=== PATIENT | male | born 1950 | race Caucasian/White ===

== ENCOUNTER 2017-08-20 13:31 | Emergency (ER) | payer MEDICARE, OTHER ==
[~2017-08-20] VITALS: Ht 167.6 cm; Wt 83.8 kg
[~2017-08-20 13:31] MED LIST: ALPR-624 PO; AMLO2.5T PO; ASPI-1009 PO; ATOR20TA PO; COR3.125T PO; ERGO500014 PO; ISOS60TA PO; LAMO25TA62 PO; LOSA25TA96 PO; METF500T7 PO; NITR0.4T51 SL; OMEP-84 PO; ZOLP5TAB8 PO
[2017-08-20] MEDS ORDERED: aspirin 81mg tab.chew PO ONE (13:45)
[2017-08-20] MEDS ORDERED: adenosine 3mg/ml 2ml vial IV ONE (13:45)
[2017-08-20 13:56] LABS: BASOPHILS # (AUTO) 0.1 X10'3 (0-0.2); BASOPHILS % (AUTO) 0.7 % (0-1); EOSINOPHILS # (AUTO) 0.2 X10'3 (0-0.9); EOSINOPHILS % (AUTO) 2.1 % (0-6); HEMATOCRIT 43.7 % (42.0-52.0); HEMOGLOBIN 15.4 g/dl (14.0-17.9); LYMPHOCYTES # (AUTO) 2.5 X10'3 (1.1-4.8); LYMPHOCYTES % (AUTO) 21.5 % (21-51); MEAN CORPUSCULAR HEMOGLOBIN 37.4 PG (27.0-31.0); MEAN CORPUSCULAR HGB CONC 35.3 % (33.0-36.5); MEAN PLATELET VOLUME 7.1 FL (7.4-10.4); MONOCYTES % (AUTO) 17.1 % (2-12); NEUTROPHILS # (AUTO) 6.7 X10'3 (1.8-7.7); NEUTROPHILS % (AUTO) 58.6 % (42-75); PLATELET COUNT 426 X10'3 (140-440); RED BLOOD COUNT 4.12 X10'6 (4.70-6.10); RED CELL DISTRIBUTION WIDTH 13.9 % (11.5-14.5); WHITE BLOOD COUNT 11.5 X10'3 (4.5-11.0)
[2017-08-20 14:19] LABS: ALANINE AMINOTRANSFERASE 31 U/L (12-78); ALBUMIN/GLOBULIN RATIO 1.1 (1.1-1.5); ALKALINE PHOSPHATASE 86 IU/L (46-116); ANION GAP 6 (8-16); ASPARTATE AMINO TRANSFERASE 14 U/L (10-37); BLOOD UREA NITROGEN 16 MG/DL (7-18); CALCIUM 9.3 MG/DL (8.5-10.1); CHLORIDE 107 MMOL/L (99-107); GLUCOSE 162 MG/DL (70-104); MAGNESIUM 1.9 MG/DL (1.5-2.4); POTASSIUM 4.2 MMOL/L (3.5-5.1); SODIUM 142 MMOL/L (135-145); TOTAL CARBON DIOXIDE 28.9 MMOL/L (24-32); TOTAL PROTEIN 7.6 G/DL (6.4-8.2); eGFR 74 ML/MIN
[2017-08-20 14:45] VITALS: BP 123/75
== END 2017-08-20 14:45 | disposition home or self-care (01) ==
LOC: ER 13:31
DX: I47.1 Supraventricular tachycardia (principal); I25.10 Atherosclerotic heart disease of native coronary artery without angina pectoris; I10 Essential (primary) hypertension; Z79.82 Long term (current) use of aspirin; Z88.7 Allergy status to serum and vaccine
CPT/HCPCS: 36415; 71045; 80053; 83735; 83880; 85025; 93005; 96374; 99285; J0153; 84484

== ENCOUNTER 2018-07-16 23:16 | Inpatient (IN) | payer MEDICARE, OTHER ==
[~2018-07-16] VITALS: Ht 167.6 cm; Wt 80.0 kg
[~2018-07-16 23:16] MED LIST changes: -AMLO2.5T PO; +AMLO2.5T5 PO
[2018-07-16] MEDS ORDERED: ondansetron/PF 4mg/2ml inj IV ONE (23:25)
[2018-07-16] MEDS ORDERED: normal saline 1000ML IV soln IVB ONE (23:25)
[2018-07-17] MEDS: fentaNYL/PF 50MCG/1 ML 2ML syringe IV PRN ×2 (00:09→00:31)
[2018-07-17 00:20] LABS: BASOPHILS % (AUTO) 0.3 % (0-1); EOSINOPHILS # (AUTO) 0.3 X10'3 (0-0.9); EOSINOPHILS % (AUTO) 1.8 % (0-6); HEMATOCRIT 40.5 % (42.0-52.0); HEMOGLOBIN 13.7 g/dl (14.0-17.9); LYMPHOCYTES # (AUTO) 1.4 X10'3 (1.1-4.8); LYMPHOCYTES % (AUTO) 9.8 % (21-51); MEAN CORPUSCULAR HEMOGLOBIN 37.6 PG (27.0-31.0); MEAN CORPUSCULAR HGB CONC 33.9 % (33.0-36.5); MEAN CORPUSCULAR VOLUME 111.1 FL (78-98); MEAN PLATELET VOLUME 7.2 FL (7.4-10.4); MONOCYTES # (AUTO) 2.4 X10'3 (0-0.9); NEUTROPHILS % (AUTO) 71.1 % (42-75); PLATELET COUNT 374 X10'3 (140-440); RED BLOOD COUNT 3.65 X10'6 (4.70-6.10); RED CELL DISTRIBUTION WIDTH 13.5 % (11.5-14.5); WHITE BLOOD COUNT 14.1 X10'3 (4.5-11.0)
[2018-07-17] MEDS ORDERED: ondansetron/PF 4mg/2ml inj IV ONE (00:25)
[2018-07-17] MEDS ORDERED: fentaNYL/PF 50MCG/1 ML 2ML syringe IV ONE (00:25)
[2018-07-17 00:35] LABS: ALANINE AMINOTRANSFERASE 35 U/L (12-78); ALBUMIN 3.7 G/DL (3.4-5.0); ALBUMIN/GLOBULIN RATIO 1.1 (1.1-1.5); ALKALINE PHOSPHATASE 88 IU/L (46-116); ANION GAP 6 (8-16); ASPARTATE AMINO TRANSFERASE 14 U/L (10-37); BILIRUBIN,TOTAL 0.9 MG/DL (0.1-1.0); BLOOD UREA NITROGEN 19 MG/DL (7-18); BUN/CREATININE RATIO 17.9 (5.4-32.0); CALCIUM 9.1 MG/DL (8.5-10.1); CHLORIDE 105 MMOL/L (99-107); CREATININE 1.06 MG/DL (0.60-1.10); GLUCOSE 174 MG/DL (70-104); POTASSIUM 3.8 MMOL/L (3.5-5.1); SODIUM 141 MMOL/L (135-145); TOTAL PROTEIN 7.2 G/DL (6.4-8.2); eGFR 69 ML/MIN
[2018-07-17 00:41] LABS: MAGNESIUM 1.9 MG/DL (1.5-2.4)
[2018-07-17] MEDS ORDERED: etomidate 2mg/ml inj. IV ONE (00:50)
[2018-07-17 01:12] LABS: PLATELET ESTIMATE NORMAL; TOTAL CELLS COUNTED 100
[2018-07-17] MEDS ORDERED: bisacodyl 10mg suppository rectal RC PRN (02:00)
[2018-07-17] MEDS ORDERED: mag hydrox/Alum hydrox/simeth 30ml oral suspension PO PRN (02:00)
[2018-07-17] MEDS ORDERED: acetaminophen 650mg rectal suppository RC PRN (02:00)
[2018-07-17] MEDS ORDERED: magnesium hydroxide 30ml (MOM) UD suspension PO PRN (02:00)
[2018-07-17] MEDS ORDERED: MESSAGE TO PHARMACY PO ONE (02:00)
[2018-07-17] MEDS ORDERED: dextrose 50%-water 50ml dispensing syringe IV PRN ×2 (02:00)
[2018-07-17] MEDS ORDERED: glucagon, human recombinant 1mg kit SUBCUT PRN (02:00)
[2018-07-17] MEDS ORDERED: dextrose ORAL solution 15 GM/59 ML bottle PO PRN ×2 (02:00)
[2018-07-17] MEDS ORDERED: morphine 4 MG/ML inj SYRINge IV PRN (02:00)
[2018-07-17] MEDS ORDERED: diphenhydrAMINE 50 mg/ml inj IV PRN (02:00)
[2018-07-17] MEDS ORDERED: acetaminophen 325mg tablet PO PRN ×2 (02:00)
[2018-07-17] MEDS ORDERED: metoclopramide 5 mg/ml inj IV PRN (02:00)
[2018-07-17] MEDS ORDERED: ondansetron/PF 4mg/2ml inj IV PRN (02:00)
[2018-07-17] MEDS ORDERED: diphenhydrAMINE 25mg capsule PO PRN (02:00)
[2018-07-17] MEDS ORDERED: ISOS30TA6 PO (02:34)
[2018-07-17] MEDS ORDERED: CARV-50 PO (02:34)
[2018-07-17] MEDS ORDERED: LAMO200T31 PO (02:34)
[2018-07-17] MEDS ORDERED: SPIR25TA5 PO (02:34)
[2018-07-17 02:54] LABS: ETHANOL < 0.010 GM/DL (0.0-0.010); PHOSPHORUS 3.1 MG/DL (2.3-4.5)
[2018-07-17] MEDS: HYDROmorphone 1 mg/ml syringe IV PRN ×2 (03:00→21:21)
[2018-07-17 04:50] VITALS: BP 152/72
[2018-07-17] MEDS ORDERED: nitroGLYCERIN 0.4mg SUBLingual tab SL SCH (05:10)
[2018-07-17] MEDS: normal saline 1000ml 1,000 ML IV SCH ×2 (05:11→15:37)
--- NOTE | 2018-07-17 06:20 | NUR ---
Patient in room ORTHO 4024. I have received report from Fabiola Faust and had the opportunity to ask questions and assume patient care.
[2018-07-17] MEDS: HYDROcodone/acetaminophen 10/325mg tab PO PRN ×2 (07:20→11:11)
[2018-07-17] MEDS ORDERED: pneumococcal 23-VAL P-sac vacc 25 mcg/0.5ml vial IMVAC ONE (07:40)
[2018-07-17] MEDS: docusate sod 100mg capsule PO SCH ×2 (07:50→19:51)
[2018-07-17 07:51] VITALS: BP 136/61
[2018-07-17] MEDS: losartan 50mg tablet PO SCH (07:52)
[2018-07-17] MEDS: amLODIPine 2.5mg tablet PO SCH (07:52)
[2018-07-17] MEDS: pantoprazole 40mg Tablet.DR PO SCH (07:53)
[2018-07-17] MEDS: nicotine 21mg patch - 24 hr TD SCH (07:54)
[2018-07-17] MEDS: ALPRAZolam 0.5mg tablet PO SCH ×3 (07:55→21:00)
[2018-07-17] MEDS ORDERED: pantoprazole 40 MG vial IV SCH (08:00)
[2018-07-17 10:00] VITALS: BP 100/67
[2018-07-17 11:44] LABS: HEMOGLOBIN 12.6 g/dl (14.0-17.9); MEAN CORPUSCULAR HEMOGLOBIN 38.8 PG (27.0-31.0); MEAN CORPUSCULAR HGB CONC 35.1 % (33.0-36.5); MEAN CORPUSCULAR VOLUME 110.7 FL (78-98); MEAN PLATELET VOLUME 7.5 FL (7.4-10.4); PLATELET COUNT 336 X10'3 (140-440); RED BLOOD COUNT 3.26 X10'6 (4.70-6.10); RED CELL DISTRIBUTION WIDTH 13.1 % (11.5-14.5); WHITE BLOOD COUNT 12.4 X10'3 (4.5-11.0)
[2018-07-17 12:10] LABS: TOTAL CELLS COUNTED 100
[2018-07-17 12:11] LABS: PLATELET ESTIMATE NORMAL
[2018-07-17 12:56] LABS: ALANINE AMINOTRANSFERASE 31 U/L (12-78); ALBUMIN 3.2 G/DL (3.4-5.0); ALBUMIN/GLOBULIN RATIO 1.1 (1.1-1.5); ALKALINE PHOSPHATASE 82 IU/L (46-116); ANION GAP 9 (8-16); ASPARTATE AMINO TRANSFERASE 16 U/L (10-37); BILIRUBIN,TOTAL 1.1 MG/DL (0.1-1.0); BLOOD UREA NITROGEN 14 MG/DL (7-18); BUN/CREATININE RATIO 13.5 (5.4-32.0); CALCIUM 8.1 MG/DL (8.5-10.1); CHLORIDE 106 MMOL/L (99-107); CREATININE 1.04 MG/DL (0.60-1.10); GLUCOSE 150 MG/DL (70-104); POTASSIUM 3.5 MMOL/L (3.5-5.1); SODIUM 141 MMOL/L (135-145); TOTAL CARBON DIOXIDE 26.5 MMOL/L (24-32); TOTAL PROTEIN 6.2 G/DL (6.4-8.2); eGFR 71 ML/MIN
[2018-07-17] MEDS: oxyCODONE/APAP 10/325mg tablet PO PRN ×2 (15:37→19:52)
--- NOTE | 2018-07-17 16:57 | NUR ---
DM consult: A1C 7.0.Pt seen by KASHIF for written/verbal DM/high protein eds. RD reviewed high protein needs for wound healing, immune strength, high protein foods, and protein supplementation options. RD contact information provided in case of further questions. Pt agrees to attend CDE course; declines additional proteins at this time. RD encouraged protein needs for wound healing given tibial fx w/ future OR next week per MD note. Addendum: 07/17/18 at [address] Amended: Links added.
[2018-07-17 18:00] VITALS: BP 94/61
--- NOTE | 2018-07-17 18:26 | NUR ---
Problems reprioritized. Patient report given, questions answered & plan of care reviewed with Peggy Hernandez RN.
--- NOTE | 2018-07-17 18:30 | NUR ---
Patient in room ORTHO 4024. I have received report from AAN CRISTINA NAVA and had the opportunity to ask questions and assume patient care.
[2018-07-17] MEDS ORDERED: temazepam 15mg capsule PO PRN (21:00)
[2018-07-17] MEDS: atorvastatin 20mg tablet PO SCH (21:14)
[2018-07-17] MEDS: zolpidem 5mg tablet PO SCH (21:15)
[2018-07-17 22:00] VITALS: BP 138/74
[2018-07-18] VITALS (13 sets, daily range): BP systolic 115–153; BP diastolic 52–81
[2018-07-18] MEDS: normal saline 1000ml 1,000 ML IV SCH ×3 (00:25→17:57)
[2018-07-18] MEDS: oxyCODONE/APAP 10/325mg tablet PO PRN ×6 (00:26→23:57)
[2018-07-18] MEDS: HYDROmorphone 1 mg/ml syringe IV PRN ×3 (05:13→21:01)
[2018-07-18] MEDS ORDERED: HYDROmorphone 1 mg/ml syringe IV ONE (06:15)
--- NOTE | 2018-07-18 06:24 | NUR ---
Problems reprioritized. Patient report given, questions answered & plan of care reviewed with ANA CRISTINA PORTILLO.
[2018-07-18 07:11] LABS: HEMATOCRIT 35.7 % (42.0-52.0); HEMOGLOBIN 12.4 g/dl (14.0-17.9); MEAN CORPUSCULAR HEMOGLOBIN 38.9 PG (27.0-31.0); MEAN CORPUSCULAR HGB CONC 34.7 % (33.0-36.5); MEAN PLATELET VOLUME 7.8 FL (7.4-10.4); PLATELET COUNT 311 X10'3 (140-440); RED BLOOD COUNT 3.18 X10'6 (4.70-6.10); RED CELL DISTRIBUTION WIDTH 13.2 % (11.5-14.5); WHITE BLOOD COUNT 11.7 X10'3 (4.5-11.0)
[2018-07-18 07:13] LABS: ALANINE AMINOTRANSFERASE 26 U/L (12-78); ALBUMIN/GLOBULIN RATIO 0.9 (1.1-1.5); ALKALINE PHOSPHATASE 77 IU/L (46-116); ANION GAP 9 (8-16); ASPARTATE AMINO TRANSFERASE 14 U/L (10-37); BLOOD UREA NITROGEN 14 MG/DL (7-18); BUN/CREATININE RATIO 15.4 (5.4-32.0); CALCIUM 8.1 MG/DL (8.5-10.1); CHLORIDE 107 MMOL/L (99-107); CHOL/HDL RATIO 2.9 (0.00-4.99); CHOLESTEROL 93 MG/DL (0-200); CREATININE 0.91 MG/DL (0.60-1.10); GLUCOSE 174 MG/DL (70-104); HDL CHOLESTEROL 32 MG/DL (35-60); LDL CHOLESTEROL 49 MG/DL (50-100); POTASSIUM 3.4 MMOL/L (3.5-5.1); SODIUM 141 MMOL/L (135-145); TOTAL CARBON DIOXIDE 25.1 MMOL/L (24-32); TOTAL PROTEIN 6.2 G/DL (6.4-8.2); TRIGLYCERIDES 85 MG/DL (20-135); eGFR 83 ML/MIN
[2018-07-18] MEDS ORDERED: ringers solution, lacted 1,000 ML IV SCH (07:41)
[2018-07-18] MEDS ORDERED: morphine 4 MG/ML inj SYRINge IV PRN ×2 (07:45)
[2018-07-18] MEDS ORDERED: proCHLORperazine 10 MG/2 ml inj IV PRN (07:45)
[2018-07-18] MEDS ORDERED: meperidine/PF 25mg/ml syringe IV PRN ×3 (07:45)
[2018-07-18] MEDS ORDERED: ondansetron/PF 4mg/2ml inj IV PRN (07:45)
[2018-07-18] MEDS: nicotine 21mg patch - 24 hr TD SCH (08:00)
[2018-07-18] MEDS: ALPRAZolam 0.5mg tablet PO SCH ×3 (08:00→21:00)
[2018-07-18 08:05] LABS: ANISOCYTOSIS 1+; LARGE PLATELETS FEW; PLATELET ESTIMATE NORMAL; TOTAL CELLS COUNTED 100
[2018-07-18] MEDS: docusate sod 100mg capsule PO SCH ×2 (09:05→19:33)
[2018-07-18] MEDS: amLODIPine 2.5mg tablet PO SCH (09:06)
[2018-07-18] MEDS: losartan 50mg tablet PO SCH (09:06)
[2018-07-18] MEDS: pantoprazole 40mg Tablet.DR PO SCH (09:09)
--- NOTE | 2018-07-18 11:45 | NUR ---
Pt transferred to OR via bed.
[2018-07-18] MEDS ORDERED: MIDAZolam 5mg/5ml vial ONE (12:09)
[2018-07-18] MEDS ORDERED: fentaNYL/PF 50MCG/1 ML 2ML syringe ONE (12:09)
[2018-07-18] MEDS ORDERED: BUPIVAcaine/dex-water/PF 7.5 mg/ml 2ml ampul ONE (12:11)
[2018-07-18] MEDS ORDERED: ceFAZolin 1000mg inj ONE (12:31)
[2018-07-18] MEDS ORDERED: ROPIVAcaine 0.5% (5mg/ml) 30ml vial ONE (13:29)
--- NOTE | 2018-07-18 13:55 | NUR ---
Received from OR via BED , accompanied by Anesthesiologist DR TERAN and report given by Anesthesiolgist. PATIENT A&OX4, DENIES PAIN, V/S WNL, NEUROVASCULAR CHECKS INTACT, SCD ON LLE, 18G PIV RUE, F/C DRAINIANG CLEAR YELLOW URINE, SPLINT CAST DRESSING TO RLE CDI.
--- NOTE | 2018-07-18 14:45 | NUR ---
Pt transferred from Recovery Room to 4024a via bed. Pt drowsy but easily aroused. Pt denied any pain at this time. R leg cast/spilnt CDI and up on pillow. VSS.
--- NOTE | 2018-07-18 14:45 | NUR ---
PATIENT A&OX4, DENIES PAIN, V/S WNL, NEUROVASCULAR CHECKS INTACT, SCD ON LLE, 18G PIV RUE, F/C DRAINIANG CLEAR YELLOW URINE, SPLINT CAST DRESSING TO RLE CDI. PATIENT TAKEN TO 4024A PLACED ON TELE AND HOOKED UP TO MONITORS IN [place]OMA ND REPORT GIVEN TO LINDSEY DE LA PAZ WHO HAS TAKEN OVER PATIENT CARE.
--- NOTE | 2018-07-18 15:10 | NUR ---
Patient in room ORTHO 4024. I have received report from kris Johns RN and had the opportunity to ask questions and assume patient care.
--- NOTE | 2018-07-18 15:10 | NUR ---
Report given to Alysia Jackson RN.
[2018-07-18] MEDS: cefazolin/dext.iso 2gm/50ml 50 ML IV SCH ×2 (16:18→23:56)
--- NOTE | 2018-07-18 18:10 | NUR ---
Received report from ANA CRISTINA Hatfield.
--- NOTE | 2018-07-18 18:23 | NUR ---
Problems reprioritized. Patient report given, questions answered & plan of care reviewed with Peggy Waite
--- NOTE | 2018-07-18 18:54 | NUR ---
PAGER ID: [phone] MESSAGE: [id number] Codey Stewart potassium was 3.4 can I get the K+ protocol please? Call Peggy [phone]
--- NOTE | 2018-07-18 19:06 | NUR ---
PAGER ID: [phone] MESSAGE: [id number] Codey Stewart. K was 3.4 I just need a replacement order. Call Peggy at [phone]
[2018-07-18] MEDS ORDERED: magnesium 4gm in 100ml NS 100 ML IV PRN (19:10)
[2018-07-18] MEDS ORDERED: potassium Cl 40MEQ/NS 500ml 500 ML IV PRN ×2 (19:10)
[2018-07-18] MEDS ORDERED: MESSAGE TO PHARMACY PO ONE (19:10)
[2018-07-18] MEDS ORDERED: magnesium Cl slow-release 64mg tablet PO PRN (19:10)
[2018-07-18] MEDS ORDERED: magnesium 2GM in 50ml NS 50 ML IV PRN (19:10)
[2018-07-18] MEDS ORDERED: glucagon, human recombinant 1mg kit SUBCUT PRN (19:10)
[2018-07-18] MEDS ORDERED: potassium Cl 20 mEq SR tablet PO PRN (19:10)
[2018-07-18] MEDS ORDERED: dextrose 50%-water 50ml dispensing syringe IV PRN ×2 (19:10)
[2018-07-18] MEDS ORDERED: dextrose ORAL solution 15 GM/59 ML bottle PO PRN ×2 (19:10)
[2018-07-18] MEDS ORDERED: insulin Lispro (HumaLOG) vial - multi-dose SQ SCH (19:10)
[2018-07-18] MEDS: potassium Cl 20 mEq SR tablet PO PRN ×2 (19:33→23:56)
[2018-07-18] MEDS: atorvastatin 20mg tablet PO SCH (21:01)
[2018-07-18] MEDS: zolpidem 5mg tablet PO SCH (21:01)
[2018-07-18] MEDS: insulin Lispro (HumaLOG) vial - multi-dose SQ SCH (21:11)
--- NOTE | 2018-07-18 21:11 | NUR ---
HS blood sugar was 247 not 274 but patient insulin is the same dose.
[2018-07-18] MEDS: insulin glargine (Lantus) pen - multi-dose SQ SCH (21:12)
[2018-07-19] MEDS: normal saline 1000ml 1,000 ML IV SCH ×2 (03:09→16:11)
[2018-07-19] MEDS: potassium Cl 20 mEq SR tablet PO PRN (03:49)
[2018-07-19] MEDS: oxyCODONE/APAP 10/325mg tablet PO PRN ×5 (03:50→21:31)
--- NOTE | 2018-07-19 05:28 | NUR ---
Bernal catheter removed. Patient tolerated well. Brook care provided. Will continue to monitor.
[2018-07-19 06:00] VITALS: BP 143/77
--- NOTE | 2018-07-19 06:36 | NUR ---
Problems reprioritized. Patient report given, questions answered & plan of care reviewed with ANA CRISTINA Hernandez.
[2018-07-19] MEDS: HYDROmorphone 1 mg/ml syringe IV PRN ×4 (06:46→19:47)
[2018-07-19] MEDS: nicotine 21mg patch - 24 hr TD SCH (08:00)
[2018-07-19] MEDS: amLODIPine 2.5mg tablet PO SCH (08:05)
[2018-07-19] MEDS: cefazolin/dext.iso 2gm/50ml 50 ML IV SCH ×2 (08:05→15:18)
[2018-07-19] MEDS: losartan 50mg tablet PO SCH (08:05)
[2018-07-19] MEDS: docusate sod 100mg capsule PO SCH ×2 (08:05→19:47)
[2018-07-19] MEDS: pantoprazole 40mg Tablet.DR PO SCH (08:06)
[2018-07-19] MEDS: aspirin 325mg tablet, delayed-release (Ecotrin) PO SCH (08:06)
[2018-07-19] MEDS: ALPRAZolam 0.5mg tablet PO SCH ×3 (08:06→21:00)
[2018-07-19 08:37] LABS: HEMATOCRIT 34.5 % (42.0-52.0); HEMOGLOBIN 12.1 g/dl (14.0-17.9); MEAN CORPUSCULAR HEMOGLOBIN 39.4 PG (27.0-31.0); MEAN CORPUSCULAR HGB CONC 35.2 % (33.0-36.5); MEAN CORPUSCULAR VOLUME 111.9 FL (78-98); MEAN PLATELET VOLUME 8.2 FL (7.4-10.4); PLATELET COUNT 299 X10'3 (140-440); RED BLOOD COUNT 3.08 X10'6 (4.70-6.10); WHITE BLOOD COUNT 15.7 X10'3 (4.5-11.0)
[2018-07-19 08:48] LABS: ALANINE AMINOTRANSFERASE 20 U/L (12-78); ALBUMIN 2.9 G/DL (3.4-5.0); ALBUMIN/GLOBULIN RATIO 0.8 (1.1-1.5); ALKALINE PHOSPHATASE 69 IU/L (46-116); ANION GAP 9 (8-16); ASPARTATE AMINO TRANSFERASE 13 U/L (10-37); BILIRUBIN,TOTAL 1.1 MG/DL (0.1-1.0); BLOOD UREA NITROGEN 11 MG/DL (7-18); BUN/CREATININE RATIO 12.8 (5.4-32.0); CALCIUM 8.3 MG/DL (8.5-10.1); CHLORIDE 106 MMOL/L (99-107); CREATININE 0.86 MG/DL (0.60-1.10); GLUCOSE 153 MG/DL (70-104); MAGNESIUM 1.8 MG/DL (1.5-2.4); POTASSIUM 3.9 MMOL/L (3.5-5.1); SODIUM 140 MMOL/L (135-145); TOTAL CARBON DIOXIDE 25.3 MMOL/L (24-32); TOTAL PROTEIN 6.6 G/DL (6.4-8.2); eGFR 88 ML/MIN
[2018-07-19] MEDS: insulin Lispro (HumaLOG) vial - multi-dose SQ SCH ×3 (08:59→18:44)
[2018-07-19 09:28] LABS: ANISOCYTOSIS 1+; LARGE PLATELETS FEW; PLATELET ESTIMATE NORMAL; TOTAL CELLS COUNTED 100
[2018-07-19 10:00] VITALS: BP 144/55
--- NOTE | 2018-07-19 12:36 | NUR ---
Nutrition Consult: Pt/SO seen by KASHIF for questions regarding snacks and curbing sweet cravings. RD reviewed healthy snack options and lower CHO/sugar free alternatives; reinforced attending CDE course. All pt/SO questions answered w/ no further concerns at this time; RD encouraged to call if further questions. Addendum: 07/19/18 at [address] Amended: Links added.
[2018-07-19 18:00] VITALS: BP 162/66
--- NOTE | 2018-07-19 18:14 | NUR ---
Problems reprioritized. Patient report given, questions answered & plan of care reviewed with Fabiola DE LA PAZ.
[2018-07-19] MEDS: atorvastatin 20mg tablet PO SCH (19:47)
[2018-07-19] MEDS: zolpidem 5mg tablet PO SCH (19:47)
[2018-07-19] MEDS: lactobacillus rhamnosus 10,000 MMU CELLS/CAPSULE PO SCH (19:47)
--- NOTE | 2018-07-19 20:13 | NUR ---
RECEIVED REPORT FROM ARELI DE LA PAZ AND ASSUMED PATIENT CARE Addendum: 07/19/18 at 2014 by Fabiola Garcia RN RECEIVED REPORT AT 1800
[2018-07-19] MEDS: insulin glargine (Lantus) pen - multi-dose SQ SCH (21:31)
[2018-07-19 22:00] VITALS: BP 105/72
[2018-07-20] MEDS: cefazolin/dext.iso 2gm/50ml 50 ML IV SCH ×4 (00:46→23:38)
[2018-07-20] MEDS: normal saline 1000ml 1,000 ML IV SCH ×3 (00:48→21:23)
[2018-07-20] MEDS: oxyCODONE/APAP 10/325mg tablet PO PRN ×4 (01:27→19:11)
[2018-07-20 06:00] VITALS: BP 114/78
--- NOTE | 2018-07-20 06:23 | NUR ---
REPORT GIVEN TO MANISHA DE LA PAZ
[2018-07-20 07:10] LABS: HEMATOCRIT 33.1 % (42.0-52.0); HEMOGLOBIN 11.4 g/dl (14.0-17.9); MEAN CORPUSCULAR HGB CONC 34.5 % (33.0-36.5); MEAN CORPUSCULAR VOLUME 112.9 FL (78-98); MEAN PLATELET VOLUME 7.9 FL (7.4-10.4); PLATELET COUNT 304 X10'3 (140-440); RED BLOOD COUNT 2.93 X10'6 (4.70-6.10); RED CELL DISTRIBUTION WIDTH 12.9 % (11.5-14.5)
[2018-07-20 07:15] LABS: ALANINE AMINOTRANSFERASE 16 U/L (12-78); ALBUMIN 2.7 G/DL (3.4-5.0); ALBUMIN/GLOBULIN RATIO 0.7 (1.1-1.5); ALKALINE PHOSPHATASE 60 IU/L (46-116); ANION GAP 7 (8-16); ASPARTATE AMINO TRANSFERASE 12 U/L (10-37); BILIRUBIN,TOTAL 0.8 MG/DL (0.1-1.0); BLOOD UREA NITROGEN 10 MG/DL (7-18); BUN/CREATININE RATIO 9.7 (5.4-32.0); CALCIUM 8.3 MG/DL (8.5-10.1); CHLORIDE 105 MMOL/L (99-107); CREATININE 1.03 MG/DL (0.60-1.10); GLUCOSE 185 MG/DL (70-104); MAGNESIUM 1.9 MG/DL (1.5-2.4); POTASSIUM 3.4 MMOL/L (3.5-5.1); SODIUM 140 MMOL/L (135-145); TOTAL PROTEIN 6.4 G/DL (6.4-8.2); eGFR 72 ML/MIN
[2018-07-20] MEDS: amLODIPine 2.5mg tablet PO SCH (07:39)
[2018-07-20] MEDS: losartan 50mg tablet PO SCH (07:39)
[2018-07-20] MEDS: docusate sod 100mg capsule PO SCH ×2 (07:39→21:02)
[2018-07-20] MEDS: pantoprazole 40mg Tablet.DR PO SCH (07:39)
[2018-07-20] MEDS: aspirin 325mg tablet, delayed-release (Ecotrin) PO SCH (07:39)
[2018-07-20] MEDS: lactobacillus rhamnosus 10,000 MMU CELLS/CAPSULE PO SCH ×2 (07:39→21:02)
[2018-07-20] MEDS: ALPRAZolam 0.5mg tablet PO SCH ×3 (08:00→21:00)
[2018-07-20] MEDS: nicotine 21mg patch - 24 hr TD SCH (08:00)
[2018-07-20 09:08] LABS: PLATELET ESTIMATE NORMAL; TOTAL CELLS COUNTED 100
[2018-07-20 09:09] LABS: LARGE PLATELETS FEW
[2018-07-20 11:38] VITALS: BP 131/75
[2018-07-20] MEDS: insulin Lispro (HumaLOG) vial - multi-dose SQ SCH ×3 (13:52→21:08)
[2018-07-20 18:30] VITALS: BP 149/70
[2018-07-20] MEDS: HYDROmorphone 1 mg/ml syringe IV PRN (20:52)
[2018-07-20] MEDS: atorvastatin 20mg tablet PO SCH (21:02)
[2018-07-20] MEDS: insulin glargine (Lantus) pen - multi-dose SQ SCH (21:05)
[2018-07-20 22:00] VITALS: BP 159/75
[2018-07-20] MEDS: zolpidem 5mg tablet PO SCH (22:43)
[2018-07-21] MEDS: oxyCODONE/APAP 10/325mg tablet PO PRN ×4 (02:41→18:33)
[2018-07-21 05:58] LABS: HEMATOCRIT 32.2 % (42.0-52.0); HEMOGLOBIN 11.3 g/dl (14.0-17.9); MEAN CORPUSCULAR VOLUME 111.4 FL (78-98); MEAN PLATELET VOLUME 7.8 FL (7.4-10.4); PLATELET COUNT 310 X10'3 (140-440); RED BLOOD COUNT 2.89 X10'6 (4.70-6.10); WHITE BLOOD COUNT 12.1 X10'3 (4.5-11.0)
[2018-07-21 06:00] VITALS: BP 156/74
[2018-07-21 06:09] LABS: ALANINE AMINOTRANSFERASE 14 U/L (12-78); ALBUMIN 2.5 G/DL (3.4-5.0); ALBUMIN/GLOBULIN RATIO 0.6 (1.1-1.5); ALKALINE PHOSPHATASE 61 IU/L (46-116); ANION GAP 8 (8-16); ASPARTATE AMINO TRANSFERASE 11 U/L (10-37); BILIRUBIN,TOTAL 0.9 MG/DL (0.1-1.0); BLOOD UREA NITROGEN 7 MG/DL (7-18); BUN/CREATININE RATIO 7.4 (5.4-32.0); CALCIUM 8.3 MG/DL (8.5-10.1); CHLORIDE 106 MMOL/L (99-107); CREATININE 0.95 MG/DL (0.60-1.10); GLUCOSE 174 MG/DL (70-104); MAGNESIUM 1.8 MG/DL (1.5-2.4); POTASSIUM 3.1 MMOL/L (3.5-5.1); SODIUM 140 MMOL/L (135-145); TOTAL PROTEIN 6.4 G/DL (6.4-8.2); eGFR 79 ML/MIN
--- NOTE | 2018-07-21 06:36 | NUR ---
RECEIVED REPORT FROM WILLARD RN
[2018-07-21 07:05] LABS: PLATELET ESTIMATE NORMAL; POLYCHROMASIA 1+; ROULEAUX 1+; TOTAL CELLS COUNTED 100
[2018-07-21] MEDS: amLODIPine 2.5mg tablet PO SCH (07:57)
[2018-07-21] MEDS: pantoprazole 40mg Tablet.DR PO SCH (07:57)
[2018-07-21] MEDS: aspirin 325mg tablet, delayed-release (Ecotrin) PO SCH (07:58)
[2018-07-21] MEDS: losartan 50mg tablet PO SCH (07:58)
[2018-07-21] MEDS: docusate sod 100mg capsule PO SCH ×2 (07:58→20:40)
[2018-07-21] MEDS: lactobacillus rhamnosus 10,000 MMU CELLS/CAPSULE PO SCH ×2 (07:58→20:40)
[2018-07-21] MEDS: nicotine 21mg patch - 24 hr TD SCH (08:00)
[2018-07-21] MEDS: ALPRAZolam 0.5mg tablet PO SCH ×3 (08:00→20:42)
[2018-07-21] MEDS: cefazolin/dext.iso 2gm/50ml 50 ML IV SCH ×2 (08:05→16:49)
--- NOTE | 2018-07-21 08:58 | NUR ---
PATIENT DID NOT WANT INSULIN IT WAS 1 UNIT AND HE "DID NOT WANT TO GET STABBED FOR THAT" HE STATED.
[2018-07-21 10:00] VITALS: BP 151/81
[2018-07-21] MEDS: insulin Lispro (HumaLOG) vial - multi-dose SQ SCH (15:02)
[2018-07-21] MEDS: potassium Cl 20 mEq SR tablet PO PRN ×2 (16:49→22:01)
[2018-07-21 18:00] VITALS: BP 144/89
--- NOTE | 2018-07-21 18:13 | NUR ---
REPORT GIVEN TO GISSELLE DE LA PAZ
--- NOTE | 2018-07-21 18:15 | NUR ---
RECEIVED REPORT FROM JENNIFER DE LA PAZ AND ASSUMED PATIENT CARE
--- NOTE | 2018-07-21 18:30 | NUR ---
PATIENT DOES NOT QUALIFY FOR INSULIN AFTER DINNER. ONLY ATE 25% OF GREEN BEENS AND BLOOD SUGAR 96. WILL RECHECK AT 2100 PER PROTOCOL. Addendum: 07/21/18 at 1854 by Fabiola Garcia RN BLOOD SUGAR [phone]
[2018-07-21] MEDS: insulin glargine (Lantus) pen - multi-dose SQ SCH (20:40)
[2018-07-21] MEDS: HYDROmorphone 1 mg/ml syringe IV PRN (20:41)
[2018-07-21] MEDS: zolpidem 5mg tablet PO SCH (20:41)
[2018-07-21] MEDS: atorvastatin 20mg tablet PO SCH (20:42)
[2018-07-21 21:52] VITALS: BP 146/76
[2018-07-21] MEDS ORDERED: potassium Cl 20 mEq SR tablet PO PRN (21:55)
[2018-07-21] MEDS ORDERED: potassium Cl 40MEQ/NS 500ml 500 ML IV PRN ×2 (21:55)
[2018-07-22] MEDS: cefazolin/dext.iso 2gm/50ml 50 ML IV SCH (01:03)
[2018-07-22] MEDS: oxyCODONE/APAP 10/325mg tablet PO PRN ×4 (01:08→15:17)
[2018-07-22] MEDS: potassium Cl 20 mEq SR tablet PO PRN (02:00)
[2018-07-22 05:17] LABS: HEMATOCRIT 30.8 % (42.0-52.0); HEMOGLOBIN 10.9 g/dl (14.0-17.9); MEAN CORPUSCULAR HEMOGLOBIN 38.9 PG (27.0-31.0); MEAN CORPUSCULAR HGB CONC 35.5 % (33.0-36.5); MEAN CORPUSCULAR VOLUME 109.5 FL (78-98); MEAN PLATELET VOLUME 7.2 FL (7.4-10.4); PLATELET COUNT 327 X10'3 (140-440); RED BLOOD COUNT 2.81 X10'6 (4.70-6.10); RED CELL DISTRIBUTION WIDTH 12.7 % (11.5-14.5); WHITE BLOOD COUNT 9.8 X10'3 (4.5-11.0)
[2018-07-22 05:40] LABS: ALANINE AMINOTRANSFERASE 13 U/L (12-78); ALBUMIN 2.4 G/DL (3.4-5.0); ALBUMIN/GLOBULIN RATIO 0.6 (1.1-1.5); ALKALINE PHOSPHATASE 56 IU/L (46-116); ANION GAP 7 (8-16); ASPARTATE AMINO TRANSFERASE 11 U/L (10-37); BILIRUBIN,TOTAL 0.6 MG/DL (0.1-1.0); BLOOD UREA NITROGEN 8 MG/DL (7-18); CALCIUM 8.4 MG/DL (8.5-10.1); CHLORIDE 107 MMOL/L (99-107); CREATININE 0.89 MG/DL (0.60-1.10); GLUCOSE 169 MG/DL (70-104); MAGNESIUM 1.9 MG/DL (1.5-2.4); POTASSIUM 3.5 MMOL/L (3.5-5.1); SODIUM 142 MMOL/L (135-145); TOTAL CARBON DIOXIDE 28.2 MMOL/L (24-32); TOTAL PROTEIN 6.3 G/DL (6.4-8.2); eGFR 85 ML/MIN
[2018-07-22 06:00] VITALS: BP 179/82
--- NOTE | 2018-07-22 06:01 | NUR ---
REPORT GIVEN TO ARELI DE LA PAZ
[2018-07-22 06:39] LABS: LARGE PLATELETS FEW; PLATELET ESTIMATE NORMAL; TOTAL CELLS COUNTED 100
[2018-07-22] MEDS: nicotine 21mg patch - 24 hr TD SCH (08:00)
[2018-07-22] MEDS: ALPRAZolam 0.5mg tablet PO SCH (08:00)
[2018-07-22] MEDS: docusate sod 100mg capsule PO SCH (08:09)
[2018-07-22] MEDS: lactobacillus rhamnosus 10,000 MMU CELLS/CAPSULE PO SCH (08:09)
[2018-07-22] MEDS: amLODIPine 2.5mg tablet PO SCH (08:09)
[2018-07-22] MEDS: losartan 50mg tablet PO SCH (08:09)
[2018-07-22] MEDS: aspirin 325mg tablet, delayed-release (Ecotrin) PO SCH (08:09)
[2018-07-22] MEDS: pantoprazole 40mg Tablet.DR PO SCH (08:10)
[2018-07-22] MEDS: HYDROmorphone 1 mg/ml syringe IV PRN (08:10)
[2018-07-22] MEDS: insulin Lispro (HumaLOG) vial - multi-dose SQ SCH ×2 (09:10→13:04)
[2018-07-22 10:00] VITALS: BP 157/84
--- NOTE | 2018-07-22 15:31 | NUR ---
Initial: Pt admitted for rt lower leg fx s/p surgery. Documented PO intake average 50%. Pt seen at bedside endorses a good appetite however states it's a little lower than usual d/t leg pain. Pt states he gets full from meals and denies desire for any meal additions at this time. Snacks brought from home present upon RD visit. Pt denies any food allergies or difficulty chewing/swallowing. LBM 07/16, pt with routine Colace, denies prunes at this time. Pt continues to express desire to attend outpatient CDE class to ensure good DM management. Pt with no further questions at this time. Will continue to follow. Recommendations: 1) Continue with CHO controlled diet 2) Monitor need for ONS 3) Monitor need for additional bowel care 4) Wt per rx Addendum: 07/22/18 at [address] Amended: Links added.
--- NOTE | 2018-07-22 15:33 | NUR ---
Discharge report called to manuel at [facility], tele removed, iv removed.
== END 2018-07-22 17:05 | DRG 493 ==
LOC: ER 23:16 → ED HOLD 07-17 01:57 → EDBEDREQ 07-17 04:20 → ORTHO 4S 07-17 04:49
PROVIDERS: ADMIT Family Medicine; ATTEND Family Medicine
PROC: 0QSJXZZ Reposition Right Fibula, External Approach (ICD-10-PCS; 2018-07-16)
PROC: 0QSGXZZ Reposition Right Tibia, External Approach (ICD-10-PCS; 2018-07-16)
PROC: 0QSG06Z Reposition Right Tibia with Intramedullary Internal Fixation Device, Open Approach (ICD-10-PCS; principal; 2018-07-18 12:02)
DX: S82.391A Other fracture of lower end of right tibia, initial encounter for closed fracture (principal); R65.10 Systemic inflammatory response syndrome (SIRS) of non-infectious origin without acute organ dysfunction; S82.831A Other fracture of upper and lower end of right fibula, initial encounter for closed fracture; D45 Polycythemia vera; E11.65 Type 2 diabetes mellitus with hyperglycemia; E78.5 Hyperlipidemia, unspecified; F17.219 Nicotine dependence, cigarettes, with unspecified nicotine-induced disorders; G47.30 Sleep apnea, unspecified; E66.9 Obesity, unspecified; I10 Essential (primary) hypertension; W18.39XA Other fall on same level, initial encounter; I25.10 Atherosclerotic heart disease of native coronary artery without angina pectoris; Z95.5 Presence of coronary angioplasty implant and graft; Z88.7 Allergy status to serum and vaccine; Z79.899 Other long term (current) drug therapy; Z79.82 Long term (current) use of aspirin; Z79.84 Long term (current) use of oral hypoglycemic drugs; Y93.89 Activity, other specified; Y92.89 Other specified places as the place of occurrence of the external cause; Y99.8 Other external cause status; Z68.28 Body mass index [BMI] 28.0-28.9, adult
CPT/HCPCS: 27752; 36415; 71045; 73590; 73610; 76000; 80053; 80061; 80320; 82948; 83036; 83735; 83880; 84100; 84443; 84484; 85025; 86885; 86900; 86901; 87070; 93005; 96361; 96374; 96375; 96376; 97110; 97116; 97161; 97162; 97530; 99152; 99285; A4615; A7000; C1713; C1758; G0378; J0690; J1170; J1815; J2250; J2270; J2405; J2795; J3010; J3490; J7030; J7120

== ENCOUNTER 2024-05-24 08:46 | Day surgery (SDC) | payer MEDICARE, OTHER ==
[2024-05-21 09:33] LABS: BASOPHILS # (AUTO) 0.1 X10'3 (0-0.2); BASOPHILS % (AUTO) 0.9 % (0-1); EOSINOPHILS # (AUTO) 0.1 X10'3 (0-0.9); EOSINOPHILS % (AUTO) 0.7 % (0-6); HEMATOCRIT 28.8 % (42.0-52.0); LYMPHOCYTES # (AUTO) 1.7 X10'3 (1.1-4.8); LYMPHOCYTES % (AUTO) 21.8 % (21-51); MEAN CORPUSCULAR HEMOGLOBIN 42.9 PG (27.0-31.0); MEAN CORPUSCULAR HGB CONC 34.7 g/dL (33.0-36.5); MEAN CORPUSCULAR VOLUME 123.6 FL (78-98); MEAN PLATELET VOLUME 7.1 FL (7.4-10.4); MONOCYTES # (AUTO) 1.6 X10'3 (0-0.9); MONOCYTES % (AUTO) 21.6 % (2-12); NEUTROPHILS # (AUTO) 4.2 X10'3 (1.8-7.7); PLATELET COUNT 258 X10'3 (140-440); RED BLOOD COUNT 2.33 X10'6 (4.70-6.10); RED CELL DISTRIBUTION WIDTH 16.7 % (11.5-14.5); WHITE BLOOD COUNT 7.6 X10'3 (4.5-11.0)
[2024-05-21 09:56] LABS: ALBUMIN 3.3 G/DL (3.4-5.0); ANION GAP 3 (8-16); BLOOD UREA NITROGEN 28 MG/DL (7-18); BUN/CREATININE RATIO 18.3 (10.0-20.0); CALCIUM 8.9 MG/DL (8.5-10.1); CHLORIDE 104 MMOL/L (99-107); CHOL/HDL RATIO 2.2 (0.00-4.99); CHOLESTEROL 105 MG/DL (0-200); CREATININE 1.53 MG/DL (0.60-1.10); GLUCOSE 210 MG/DL (70-104); HDL CHOLESTEROL 48 MG/DL (35-60); LDL CHOLESTEROL 46 MG/DL (50-100); POTASSIUM 4.1 MMOL/L (3.5-5.1); SODIUM 138 MMOL/L (135-145); TRIGLYCERIDES 107 MG/DL (20-135); eGFR 45 ML/MIN
[2024-05-21 10:02] LABS: APTT 27 SECONDS (22-32)
[2024-05-21 10:19] LABS: ANISOCYTOSIS 1+; PLATELET ESTIMATE NORMAL; TOTAL CELLS COUNTED 100
[2024-05-21 10:21] LABS: POLYCHROMASIA 1+; STOMATOCYTES 1+
[2024-05-21 10:29] LABS: PROTHROMBIN TIME 10.4 SECONDS (9.0-12.0)
[2024-05-24] VITALS (9 sets, daily range): BP systolic 125–152; BP diastolic 52–86; PULSE 69–80; RESP 10–12; TEMP 98.4; O2SAT 92–96
[~2024-05-24] VITALS: Ht 167.6 cm; Wt 85.2 kg
[~2024-05-24 08:46] MED LIST changes: +CARV-50 PO; -COR3.125T PO; +ISOS30TA84 PO; -ISOS60TA PO; +LAMO200T31 PO; -LAMO25TA62 PO; +LOSA-415 PO; -LOSA25TA96 PO; +METF-900 PO; -METF500T7 PO; +SPIR25TA5 PO
[2024-05-24] MEDS ORDERED: ASPI-1265 PO (09:20)
[2024-05-24] MEDS ORDERED: DOXY-1 PO (09:20)
[2024-05-24] MEDS ORDERED: HYDR500C2 PO (09:20)
[2024-05-24] MEDS ORDERED: LAMO200T10 PO (09:20)
[2024-05-24] MEDS ORDERED: CARV-50 PO (09:23)
[2024-05-24] MEDS ORDERED: FURO40TA4 PO (09:23)
[2024-05-24] MEDS ORDERED: EMPA25TA PO (09:23)
[2024-05-24] MEDS ORDERED: POTA-206 PO (09:25)
[2024-05-24] MEDS ORDERED: FURO-150 PO (09:29)
[2024-05-24] MEDS ORDERED: TIOT4MIS3 INH (09:29)
[2024-05-24] MEDS ORDERED: ATOR40TA72 PO (09:31)
[2024-05-24] MEDS ORDERED: ISOS60TA71 PO (09:34)
[2024-05-24] MEDS ORDERED: SACU1TAB4 PO (09:35)
[2024-05-24] MEDS: normal saline 1,000 ML IV SCH (09:54)
[2024-05-24] MEDS: LORazepam 0.5 MG tablet PO PRN (09:54)
[2024-05-24] MEDS: diphenhydrAMINE 25mg capsule PO PRN (09:54)
[2024-05-24] MEDS ORDERED: verapamil 2.5 mg/ml inj IV ONE (11:48)
[2024-05-24] MEDS ORDERED: midazolam 1 mg/ML 2ml injection ONE ×2 (11:48→12:59)
[2024-05-24] MEDS ORDERED: LIDOcaine 1% (10mg/ml) 2ml vial ONE (11:48)
[2024-05-24] MEDS ORDERED: fentaNYL/PF 50MCG/1 ML 2ML syringe ONE ×2 (11:48→13:12)
[2024-05-24] MEDS ORDERED: iohexol 350 MG/ML 50ML vial IV ONE (11:48)
[2024-05-24] MEDS ORDERED: iohexol 350MG/ML 100ml bottle IV ONE (11:49)
[2024-05-24] MEDS ORDERED: heparin 1,000unit/ml 10ml vial 10 ML ONE (11:49)
[2024-05-24] MEDS ORDERED: nitroGLYCERIN 500mcg/5mL D5W 5 ML IV ONE (11:49)
[2024-05-24] MEDS ORDERED: HYDROcodone/acetaminophen 5mg/325mg tablet PO PRN (14:00)
[2024-05-24] MEDS ORDERED: HYDROcodone/acetaminophen 10/325mg tab PO PRN (14:00)
[2024-06-01] MEDS ORDERED: METF-438 PO (12:54)
[2024-06-01] MEDS ORDERED: LAMO100T65 PO (12:54)
[2024-06-06] MEDS ORDERED: FURO-150 PO (09:17)
[2024-06-06] MEDS ORDERED: HYDR-3964 PO (09:17)
== END 2024-05-24 17:00 | disposition home or self-care (01) ==
LOC: SSTAY O 08:46
PROVIDERS: ATTEND Internal Medicine Interventional Cardiology
DX: R94.39 Abnormal result of other cardiovascular function study (principal); I25.10 Atherosclerotic heart disease of native coronary artery without angina pectoris; I49.3 Ventricular premature depolarization; R94.31 Abnormal electrocardiogram [ECG] [EKG]; I11.0 Hypertensive heart disease with heart failure; I50.20 Unspecified systolic (congestive) heart failure; E11.9 Type 2 diabetes mellitus without complications; E78.00 Pure hypercholesterolemia, unspecified; K21.9 Gastro-esophageal reflux disease without esophagitis; J44.9 Chronic obstructive pulmonary disease, unspecified; G47.33 Obstructive sleep apnea (adult) (pediatric); I42.9 Cardiomyopathy, unspecified; Z85.51 Personal history of malignant neoplasm of bladder; Z79.2 Long term (current) use of antibiotics; Z79.82 Long term (current) use of aspirin; Z79.84 Long term (current) use of oral hypoglycemic drugs; Z79.899 Other long term (current) drug therapy; Z95.5 Presence of coronary angioplasty implant and graft; Z88.7 Allergy status to serum and vaccine
CPT/HCPCS: 36415; 80048; 80061; 82948; 85025; 85610; 85730; 93005; 93458; 93571; 99152; 99153; A6258; A6402; C1751; C1769; C1894; J1644; J2003; J2250; J3010; J3490; J7030; Q0163; Q9967; Z7610; 85007

== ENCOUNTER 2024-08-21 12:29 | Emergency (ER) | payer MEDICARE, OTHER ==
[~2024-08-21] VITALS: Ht 167.6 cm; Wt 79.0 kg
[~2024-08-21 12:29] MED LIST changes: -ALPR-624 PO; -AMLO2.5T5 PO; -ASPI-1009 PO; +ASPI-1265 PO; -ATOR20TA PO; +ATOR40TA72 PO; +DOXY-1 PO; +EMPA25TA PO; -ERGO500014 PO; +FURO-150 PO; +HYDR-3964 PO; +HYDR500C2 PO; -ISOS30TA84 PO; +LAMO100T65 PO; -LAMO200T31 PO; -LOSA-415 PO; +METF-438 PO; -METF-900 PO; -NITR0.4T51 SL; -OMEP-84 PO; +POTA-206 PO; -SPIR25TA5 PO; +TIOT4MIS3 INH
[2024-08-21 12:57] LABS: BASOPHILS # (AUTO) 0.1 X10'3 (0-0.2); BASOPHILS % (AUTO) 1.4 % (0-1); EOSINOPHILS # (AUTO) 0.1 X10'3 (0-0.9); EOSINOPHILS % (AUTO) 1.3 % (0-6); HEMOGLOBIN 10.6 g/dl (14.0-17.9); LYMPHOCYTES % (AUTO) 22.8 % (21-51); MEAN CORPUSCULAR HEMOGLOBIN 41.3 PG (27.0-31.0); MEAN CORPUSCULAR HGB CONC 34.1 g/dL (33.0-36.5); MEAN CORPUSCULAR VOLUME 121.1 FL (78-98); MONOCYTES # (AUTO) 1.9 X10'3 (0-0.9); MONOCYTES % (AUTO) 22.7 % (2-12); NEUTROPHILS # (AUTO) 4.4 X10'3 (1.8-7.7); NEUTROPHILS % (AUTO) 51.8 % (42-75); PLATELET COUNT 282 X10'3 (140-440); RED BLOOD COUNT 2.56 X10'6 (4.70-6.10); RED CELL DISTRIBUTION WIDTH 19.4 % (11.5-14.5); WHITE BLOOD COUNT 8.6 X10'3 (4.5-11.0)
[2024-08-21 13:05] LABS: ALANINE AMINOTRANSFERASE 22 U/L (12-78); ALBUMIN 3.3 G/DL (3.4-5.0); ALKALINE PHOSPHATASE 83 IU/L (46-116); ANION GAP 3 (8-16); ASPARTATE AMINO TRANSFERASE 7 U/L (10-37); BILIRUBIN,TOTAL 0.8 MG/DL (0.1-1.0); BLOOD UREA NITROGEN 16 MG/DL (7-18); BUN/CREATININE RATIO 17.4 (10.0-20.0); CALCIUM 8.9 MG/DL (8.5-10.1); CHLORIDE 106 MMOL/L (99-107); CREATININE 0.92 MG/DL (0.60-1.10); GLUCOSE 241 MG/DL (70-104); POTASSIUM 3.9 MMOL/L (3.5-5.1); SODIUM 142 MMOL/L (135-145); TOTAL CARBON DIOXIDE 32.7 MMOL/L (24-32); TOTAL PROTEIN 6.7 G/DL (6.4-8.2); eCRCL 63 ML/MIN; eGFR 80 ML/MIN
[2024-08-21 13:13] LABS: PRO BRAIN NATRIURETIC PEPTIDE 1105 PG/ML (0-450)
[2024-08-21 14:49] VITALS: BP 186/99; PULSE 79; RESP 12; TEMP 98.2; O2SAT 98
== END 2024-08-21 16:58 | disposition home or self-care (01) ==
LOC: ER 12:29
DX: I11.0 Hypertensive heart disease with heart failure (principal); I50.9 Heart failure, unspecified; E11.9 Type 2 diabetes mellitus without complications; E78.5 Hyperlipidemia, unspecified; I25.10 Atherosclerotic heart disease of native coronary artery without angina pectoris; I48.91 Unspecified atrial fibrillation; F17.210 Nicotine dependence, cigarettes, uncomplicated; Z95.1 Presence of aortocoronary bypass graft; Z88.7 Allergy status to serum and vaccine; Z79.82 Long term (current) use of aspirin; Z79.84 Long term (current) use of oral hypoglycemic drugs; Z79.899 Other long term (current) drug therapy
CPT/HCPCS: 36415; 71045; 80053; 83880; 84484; 85025; 93005; 99285